=== PATIENT | female | born 1960 | race Caucasian/White ===

== ENCOUNTER 2020-06-11 11:20 | Outpatient (CLI) | payer OTHER, BC, SELFPAY | END 2020-06-11 11:21 | disposition home or self-care (01) | LOC: ANHCOVIDVC 11:20 | PROVIDERS: PCP Internal Medicine | DX: Z23 Encounter for immunization (principal) | CPT/HCPCS: 0001A; 91300 ==

== ENCOUNTER 2020-07-02 11:10 | Outpatient (CLI) | payer OTHER, BC, SELFPAY | END 2020-07-02 11:11 | disposition home or self-care (01) | LOC: ANHCOVIDVC 11:10 | PROVIDERS: PCP Internal Medicine | DX: Z23 Encounter for immunization (principal) | CPT/HCPCS: 0002A; 91300 ==

== ENCOUNTER 2021-01-20 08:09 | Outpatient (CLI) | payer OTHER, BC, SELFPAY ==
--- NOTE | ~2021-01-20 | MM_ITS ---
EXAMINATION: MM screening tori BI w tiana HISTORY: Screening mammogram, family history of breast cancer in her mother. TECHNIQUE: Craniocaudal and mediolateral oblique 3-D tomosynthesis images were obtained and synthetic 2-D images were generated. CAD analysis was submitted and interpreted. COMPARISON: 05/04/2017, 02/18/2016, 01/23/2014 BREAST PARENCHYMAL COMPOSITION: There are scattered areas of fibroglandular density. FINDINGS: There is no evidence of suspicious mass, calcification, or architectural distortion to sugg est malignancy in either breast. There has been no suspicious interval change. IMPRESSION: 1. No mammographic evidence of malignancy. 2. Recommend routine screening mammography in one year. BI-RADS Category 1: Negative Reviewed, dictated and finalized at location A. [place] OPERATIONS SUPERVISOR
== END 2021-01-20 08:10 | disposition home or self-care (01) ==
PROVIDERS: PCP Family Medicine Adolescent Medicine; Visit Provider Obstetrics & Gynecology
DX: Z12.31 Encounter for screening mammogram for malignant neoplasm of breast (principal)
CPT/HCPCS: 77063; 77067

== ENCOUNTER 2023-03-23 08:30 | Outpatient (CLI) | payer OTHER, SELFPAY ==
--- NOTE | 2023-03-23 08:44 | EST_ITS ---
Patient Info Name: Lilliana Nayak Age: 63 years : 1960 Gender: Female Ht: 64 in Wt: 190 lbs BSA: 2.01 m2 Exam Date: 03/23/2023 9:03 AM Exam Location: [facility] Patient Status: Outpatient Admit Date: 03/23/2023 Staff Ordering Physician: Indu Logan APRN Attending Provider: Indu Logan APRN Exercise Technologist: Ranjana Koehler RDCS Exercise Physician: Kai Godinez DO Exam Type: CA stress test treadmill Study Info Indications R07.89 - Other chest pain A treadmill exercise stress test was performed. Summary 1. 1. Negative Eric exercise stress test for ischemic ST changes by ECG criteria. 2. 2. Good functional capacity, achieving 8.9 METs of workload. 3. 3. Appropriate HR response to exercise. 4. 4. Appropriate HR recovery at 1 minute post exercise. 5. 5. No imaging with stress testing. 6. 6. Patient informed of the above results. Protocol: Eric Stress ECG Details Stage: REST Duration (min): 0 min : 58 sec Speed (mph): 0.0 Grade (%): 0 HR (bpm): 69 SBP (mmHg): 101 DBP (mmHg): 72 METS: --- Stage: REST Duration (min): 4 min : 39 sec Speed (mph): 0.0 Grade (%): 0 HR (bpm): 74 SBP (mmHg): 101 DBP (mmHg): 72 METS: --- Stage: STAGE 1 Duration (min): 1 min : 0 sec Speed (mph): 1.7 Grade (%): 10 HR (bpm): 99 SBP (mmHg): 101 DBP (mmHg): 72 METS: --- Stage: STAGE 1 Duration (min): 2 min : 0 sec Speed (mph): 1.7 Grade (%): 10 HR (bpm): 112 SBP (mmHg): 101 DBP (mmHg): 72 METS: --- Stage: STAGE 1 Duration (min): 3 min : 0 sec Speed (mph): 1.7 Grade (%): 10 HR (bpm): 115 SBP (mmHg): 139 DBP (mmHg): 74 METS: --- Stage: STAGE 2 Duration (min): 1 min : 0 sec Speed (mph): 2.5 Grade (%): 12 HR (bpm): 124 SBP (mmHg): 139 DBP (mmHg): 74 METS: --- Stage: STAGE 2 Duration (min): 2 min : 0 sec Speed (mph): 2.5 Grade (%): 12 HR (bpm): 130 SBP (mmHg): 139 DBP (mmHg): 74 METS: --- Stage: STAGE 2 Duration (min): 3 min : 0 sec Speed (mph): 2.5 Grade (%): 12 HR (bpm): 135 SBP (mmHg): 139 DBP (mmHg): 74 METS: --- Stage: STAGE 3 Duration (min): 1 min : 0 sec Speed (mph): 3.4 Grade (%): 14 HR (bpm): 143 SBP (mmHg): 120 DBP (mmHg): 73 METS: --- Stage: STAGE 3 Duration (min): 1 min : 7 sec Speed (mph): 3.4 Grade (%): 14 HR (bpm): 144 SBP (mmHg): 120 DBP (mmHg): 73 METS: --- Stage: RECOVERY Duration (min): 0 min : 52 sec Speed (mph): 0.0 Grade (%): 0 HR (bpm): 127 SBP (mmHg): 139 DBP (mmHg): 72 METS: --- Stage: RECOVERY Duration (min): 1 min : 52 sec Speed (mph): 0.0 Grade (%): 0 HR (bpm): 107 SBP (mmHg): 139 DBP (mmHg): 72 METS: --- Stage: RECOVERY Duration (min): 2 min : 52 sec Speed (mph): 0.0 Grade (%): 0 HR (bpm): 93 SBP (mmHg): 148 DBP (mmHg): 71 METS: --- Stage: RECOVERY
== END 2023-03-23 08:31 | disposition home or self-care (01) ==
PROVIDERS: PCP Family Medicine Adolescent Medicine; Visit Provider Nurse Practitioner Family
DX: R07.89 Other chest pain (principal); E78.00 Pure hypercholesterolemia, unspecified
CPT/HCPCS: 93017

== ENCOUNTER 2024-04-08 12:21 | Emergency (ER) | payer OTHER, SELFPAY ==
--- NOTE | ~2024-04-08 | XR_ITS ---
EXAMINATION: XR chest 2V DATE: 04/08/2024 12:57 INDICATION: Left-sided chest pain TECHNIQUE: PA and lateral views of the chest were obtained. COMPARISON: None FINDINGS: Mild streaky opacities at the bilateral lung bases. There are also blunting of the left costophrenic angle and right posterior sulcus consistent with very small bilateral pleural effusions. No pneumotho rax. The cardiomediastinal silhouette is normal. Mild thoracic spondylosis. IMPRESSION: 1. Very small bilateral pleural effusions. 2. Mild streaky bibasilar opacities and favor atelectasis over pneumonia or mild pulmonary edema. Reviewed, dictated and finalized at location B. ER DEVELOPMENT COORDINATOR/TEACHER IMPRESSION: 1. Very small bilateral pleural effusions. 2. Mild streaky bibasilar opacities and favor atelectasis over pneumonia or mil d pulmonary edema.
--- NOTE | 2024-04-08 12:25 | ECG_ITS ---
Test Date: 2024-04-08 12:28:34 Measurements Intervals Devol Rate: 97 P: -7 OK: 163 QRS: 6 QRSD: 86 T: 10 QT: 336 QTc: 427 Interpretive Statements SINUS RHYTHM WITH OCCASIONAL SUPRAVENTRICULAR PREMATURE COMPLEXES BORDERLINE R WAVE PROGRESSION, ANTERIOR LEADS BORDERLINE T WAVE ABNORMALITY- ANT/INF LEADS BORDERLINE ECG No previous ECG available for comparison Electronically Signed On 04-08-2024 13:42:46 SOFTWARE QUALITY ASSURANCE SPECIALIST by Kai Godinez D.O.
[2024-04-08 12:35] VITALS: PULSE 99; RESP 20; TEMP 36.6; O2SAT 98
[2024-04-08 12:52] LABS: Alanine Aminotransferase 21 U/L (6-35); Albumin Level 4.3 g/dL (3.5-5.1); Alkaline Phosphatase 75 U/L (38-126); Anion Gap 9 mmol/L (4-12); Aspartate Amino Transferase 24 U/L (14-36); Bilirubin,Total 0.6 mg/dL (0.2-1.3); Blood Urea Nitrogen 9 mg/dL (7-17); Calcium 9.3 mg/dL (8.4-10.2); Carbon Dioxide 27 mmol/L (22-30); Chloride 98 mmol/L (98-107); Estimated CRCL calculation 85 ml/min; Estimated Glomerular Filt Rate > 60; Glucose 95 mg/dL (65-110); Lipase 50 U/L (23-300); Potassium 4.1 mmol/L (3.4-5.0); Sodium 134 mmol/L (137-145)
[2024-04-08 12:54] LABS: Partial Thromboplastin Time 27.2 Seconds (22.3-36.8); Prothrombin Time 13.3 Seconds (11.1-14.7)
[2024-04-08 13:01] LABS: Troponin I < 0.012 ng/mL (0.000-0.034)
[2024-04-08 14:08] LABS: NT Pro B Type Natriuretic Pept 94 pg/mL (19.9-100)
[2024-04-08 14:38] LABS: Basophils Absolute Auto 0.1 K/mm3 (0.0-0.1); Eosinophils Absolute Auto 0.1 K/mm3 (0-0.3); Eosinophils Percent Auto 1.2 % (0-4.4); Hematocrit 40.8 % (37.0-47.0); Hemoglobin 13.1 g/dL (12.0-15.0); Immature Granulocyte Absolute 0.02 K/mm3 (0.00-0.031); Immature Granulocyte Percent A 0.2 % (0-0.5); Lymphocytes Absolute Auto 1.56 K/mm3 (0.9-3.2); Lymphocytes Percent Auto 18.7 % (18.3-44.2); Mean Corpuscular HGB Conc 32.1 g/dl (32-36); Mean Corpuscular Volume 90.5 fl (80-100); Mean Platelet Volume 9.5 fl (7.4-10.4); Monocytes Absolute Auto 0.7 K/mm3 (0.1-0.6); Monocytes Percent Auto 8.9 % (2.6-8.5); Neutrophils Absolute Auto 5.9 K/mm3 (1.3-6.7); Platelet Count Result 534 k/mm3 (150-375); Red Blood Count 4.51 M/mm3 (4.2-5.4); Red Cell Distribution Width 12.9 % (11.5-14.5); White Blood Count 8.4 K/mm3 (4.5-10.0)
[2024-04-08 16:00] VITALS: BP 150/80; PULSE 93; RESP 16; O2SAT 99
--- NOTE | 2024-04-08 16:11 | ECG_ITS ---
Test Date: 2024-04-08 16:15:51 Measurements Intervals [place] Rate: 93 P: 9 OK: 176 QRS: 7 QRSD: 84 T: 3 QT: 343 QTc: 427 Interpretive Statements SINUS RHYTHM WITH OCCASIONAL SUPRAVENTRICULAR PREMATURE COMPLEXES DELAYED PRECORDIAL R/S TRANSITION BORDERLINE T WAVE ABNORMALITY- INFERIOR LEADS BASELINE ARTIFACT- I, II, AVR, AVL,A VF, V1 BORDERLINE ECG Compared to ECG 04/08/2024 12:28:34 No significant changes Electronically Signed On 04-08-2024 16:31:04 TRANSPORTATION SOLUTIONS MANAGER by Kai Godinez D.O.
[2024-04-08] MEDS: KETOROLAC 30 MG/ML VIAL (*BKC) IV PUSH (16:43)
[2024-04-08 16:44] LABS: Troponin I < 0.012 ng/mL (0.000-0.034)
[2024-04-08 17:00] VITALS: BP 130/81; PULSE 88; RESP 16; O2SAT 100
--- NOTE | 2024-04-08 17:41 | ED_ITS ---
HPI - General Adult General Chief complaint: Chest Pain Stated complaint: CP Time Seen by Provider: 04/08/24 16:16 Related Data Home Medications ?Medication ?Instructions ?Recorded ?Confirmed ?Last Taken ?Type multivitamin (One-A-Day Essential 1 tablet PO DAILY 05/03/21 04/08/24 Unknown History tablet) collagen,hydrolysate 500 mg-biotin cap PO 02/15/23 04/08/24 Unknown History 800 mcg-ascorbic acid 50 mg capsule (Collagen 1500 Plus C) Allergies Allergy/AdvReac Type Severity Reaction Status Date / Time No Known Allergies Allergy Verified 04/08/24 11:19 [facility] Past Medical History Medical History BMI 31.0-31.9,adult Pure hypercholesterolemia, unspecified Surgical History Surgical History Tubal ligation status Family History Family History Mother Family history of malignant neoplasm of breast in first degree relative Father Primary pancreatic neuroendocrine tumor Sibling , Onset Age: 16 drowning accident Other Diabetes mellitus Family history of cardiovascular disease Social History Social History Smoking packs per day: 1 Smoking cigarettes per day: 20.0 Years smoked: 10 Smoking pack-years: 10.00 Smoking status: Former smoker Tobacco type: cigarettes Second hand tobacco smoke exposure: No Smoking end date: 08/02/06 Alcohol intake: current Drinks per week: 7 Substance use: never Substance use type: does not use Do You Feel Safe in your Home?: Yes Lack of Transportation: No Lack of Food: Never True Current Housing: I Have Housing Concerned About Future Housing: No Difficulty Paying Gas/Electric Bills: No Difficulty Paying for Meds: No Currently Unemployed: No Education: Bachelor's Degree Difficulty w/ Childcare or Family Care: No Living arrangements: with family Occupation/Education: occupation 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 Gender identity (if verbalized by the patient): Female Sexual Orientation (if Verbalized by the Patient): Straight or Heterosexual Spiritual care concerns: No Agree to blood products: Yes Course Course Emergency Course: Age-Adjusted D-dimer for Venous Thromboembolism (VTE) from [email or web address] on 04/08/2024 All calculations should be rechecked by clinician prior to use RESULT SUMMARY: 0.64 ?g/mL Age-adjusted D-dimer cutoff, FEU VTE unlikely Reported D-dimer is less than or equal to cutoff; consider alternative diagnosis INPUTS: Age ?> 64 years D-dimer level reported by lab ?> 0.49 ?g/mL Patient resting comfortably. Pain improved with Toradol. Age adjusted D-dimer with BT on likely. Likely pleurisy. Appropriate for discharge home with scheduled anti-inflammatories. Vital Signs Vital signs: Vital Signs Temperature 97.8 F 04/08/24 12:35 Pulse Rate 99 04/08/24 12:35 Respiratory Rate 20 04/08/24 12:35 Pulse Oximetry 98 04/08/24 12:35 Oxygen Delivery Room Air 04/08/24 12:35 Temperature 97.8 F 04/08/24 12:35 Pulse Rate 82 04/08/24 17:52 Respiratory Rate 16 04/08/24 17:52 Blood Pressure 136/76 04/08/24 17:52 Pulse Oximetry 99 04/08/24 17:52 Oxygen Delivery Room Air 04/08/24 16:19 Medical Decision Making Vital Signs Vital Signs: Vital Signs Temperature 97.8 F 04/08/24 12:35 Pulse Rate 99 04/08/24 12:35 Respiratory Rate 20 04/08/24 12:35 Pulse Oximetry 98 04/08/24 12:35 Oxygen Delivery Room Air 04/08/24 12:35 Temperature 97.8 F 04/08/24 12:35 Pulse Rate 82 04/08/24 17:52 Respiratory Rate 16 04/08/24 17:52 Blood Pressure 136/76 04/08/24 17:52 Pulse Oximetry 99 04/08/24 17:52 Oxygen Delivery Room Air 04/08/24 16:19 Lab Data 04/08/24 12:32 04/08/24 12:32 Labs: Lab Results 04/08/24 04/08/24 04/08/24 Range/Units 12:32 16:16 17:47 WBC 8.4 (4.5-10.0) K/mm3 RBC 4.51 (4.2-5.4) M/mm3 Hgb 13.1 (12.0-15.0) g/dL Hct 40.8 (37.0-47.0) % MCV 90.5 (80-100) fl MCH 29.0 (26-34) pg MCHC 32.1 (32-36) g/dl RDW 12.9 (11.5-14.5) % Plt Count 534 H (150-375) k/mm3 MPV 9.5 (7.4-10.4) fl Immature Gran % (Auto) 0.2 (0-0.5) % Neut % (Auto) 70.0 (45.5-73.1) % Lymph % (Auto) 18.7 (18.3-44.2) % [place] % (Auto) 8.9 H (2.6-8.5) % Eos % (Auto) 1.2 (0-4.4) % Baso % (Auto) 1.0 (0.2-1.2) % Lymph # (Auto) 1.56 (0.9-3.2) K/mm3 [place] # (Auto) 0.7 H (0.1-0.6) K/mm3 Eos # (Auto) 0.1 (0-0.3) K/mm3 Baso # (Auto) 0.1 (0.0-0.1) K/mm3 Abs Immat Gran (auto) 0.02 (0.00-0.031) K/mm3 Absolute Neuts (auto) 5.9 (1.3-6.7) K/mm3 Absolute Nucleated RBC 0.000 (0.0-0.012) K/mm3 Nucleated RBC % 0.0 (0.0-0.2) % PT 13.3 (11.1-14.7) Seconds INR 1.0 APTT 27.2 (22.3-36.8) Seconds D-Dimer 0.49 H (<0.48) ug/mL Sodium 134 L (137-145) mmol/L Potassium 4.1 (3.4-5.0) mmol/L Chloride 98 (98-107) mmol/L Carbon Dioxide 27 (22-30) mmol/L Anion Gap 9 (4-12) mmol/L BUN 9 (7-17) mg/dL Creatinine 0.59 L (0.7-1.0) mg/dL Estim Creat Clear Calc 85 ml/min Estimated GFR > 60 (59 - ) Glucose 95 (65-110) mg/dL Calcium 9.3 (8.4-10.2) mg/dL Total Bilirubin 0.6 (0.2-1.3) mg/dL AST 24 (14-36) U/L ALT 21 (6-35) U/L Alkaline Phosphatase 75 (38-126) U/L Troponin I < 0.012 < 0.012 (0.000-0.034) ng/mL NT-Pro-B Natriuret Pep 94 (19.9-100) pg/mL Total Protein 8.0 (6.3-8.2) g/dL Albumin 4.3 (3.5-5.1) g/dL Lipase 50 (23-300) U/L Imaging Data Radiologist's impression: ITS Impressions Chest X-Ray 04/08/24 12:57 IMPRESSION: 1. Very small bilateral pleural effusions. 2. Mild streaky bibasilar opacities and favor atelectasis over pneumonia or mild pulmonary edema. ECG Data EKG #1: ECG completion date: 04/08/24 ECG completion time: 16:15 EKG Interpretation: normal rate (93), sinus rhythm, non-specific ST changes, normal QRS, normal QT and NL axis Discharge Plan Discharge Clinical Impression: Pleurisy Patient Disposition: Home, Self-Care Condition: Stable Instructions: Pleurisy (ED) Additional Instructions: Please return to the emergency department if you develop severe and persistent chest pain, difficulty breathing, dizziness, leg swelling or if you are coughing up blood as these can be signs of a medical emergency. Please call your doctor for a follow up appointment to determine the need for further testing. Patient Language: Burmese Prescriptions: New naproxen 375 mg tablet 375 mg PO BID Qty: 14 0RF No Action multivitamin [One-A-Day Essential] Tablet 1 tablet PO DAILY Collagen 1500 Plus C 500 mg-800 mcg- 50 mg capsule PO triamcinolone acetonide 0.1 % cream 1 applic topical BID Qty: 30 0RF alprazolam 0.5 mg tablet 0.5 mg PO QHS PRN (Reason: sleep) Qty: 30 4RF atorvastatin 20 mg tablet See Rx Instructions .ROUTE .COMPLEX Qty: 90 0RF Dose Instruction: TAKE 1 TABLET BY MOUTH DAILY Rx Instructions: TAKE 1 TABLET BY MOUTH DAILY Follow-up/Referrals: Raul Mott MD [Primary Care Provider] - 1 Week
[2024-04-08 17:52] VITALS: BP 136/76; PULSE 82; RESP 16; O2SAT 99
[2024-04-08 18:18] LABS: D Dimer 0.49 ug/mL (<0.48)
== END 2024-04-08 18:53 | disposition home or self-care (01) ==
PROVIDERS: Family Medicine; Physician Assistant; Emergency Provider Emergency Medicine; PCP Family Medicine Adolescent Medicine
DX: R09.1 Pleurisy (principal); E78.00 Pure hypercholesterolemia, unspecified; Z87.891 Personal history of nicotine dependence; Z79.899 Other long term (current) drug therapy; I49.1 Atrial premature depolarization; R94.31 Abnormal electrocardiogram [ECG] [EKG]
CPT/HCPCS: 36415; 71046; 80053; 83690; 83880; 84484; 85025; 85380; 85610; 85730; 93005; 96374; 99284; J1885